=== PATIENT | female | born 2000 | race African-American/Black ===

== ENCOUNTER 2024-04-14 16:30 | Emergency (ER) | payer MEDICAID ==
[~2024-04-14] VITALS: Ht 157.5 cm; Wt 93.2 kg
[2024-04-14 16:34] VITALS: O2SAT 100
[2024-04-14] MEDS ORDERED: DIPHENHYDRAMINE 50MG/ML VIAL IV ONE (18:15)
[2024-04-14] MEDS ORDERED: METHYLPREDNISOLONE SOD SUCC 125MG/2ML (ACT-O-VIAL) IV ONE (18:15)
[2024-04-14] MEDS: METHYLPREDNISOLONE SOD SUCC 125MG/2ML (ACT-O-VIAL) IV NR (20:45)
[2024-04-14] MEDS: DIPHENHYDRAMINE 50MG/ML VIAL IV NR (20:45)
[2024-04-14] MEDS ORDERED: EPIN0.3P3 IM (21:46)
[2024-04-14] MEDS ORDERED: LORA10TA7 MT (21:47)
[2024-04-14 22:00] VITALS: BP 115/78; PULSE 81; RESP 19; TEMP 97.9
== END 2024-04-15 00:06 | disposition home or self-care (01) ==
LOC: ER 16:40
DX: T78.40XA Allergy, unspecified, initial encounter (principal); X58.XXXA Exposure to other specified factors, initial encounter
CPT/HCPCS: 96374; 96375; 99284; J1200; J2919; Z7610